=== PATIENT | male | born 1990 | race Asian ===

== ENCOUNTER 2021-02-17 21:19 | Emergency (ER) | payer OTHER ==
[~2021-02-17] VITALS: Ht 180.3 cm; Wt 72.6 kg
[2021-02-17 21:23] VITALS: TEMP 99.8
[2021-02-17 22:15] VITALS: BP 123/60
== END 2021-02-17 22:17 | disposition home or self-care (01) ==
LOC: ED 21:19
DX: J06.9 Acute upper respiratory infection, unspecified (principal); U07.1 COVID-19; F17.210 Nicotine dependence, cigarettes, uncomplicated
CPT/HCPCS: 87635; 99283; U0003

== ENCOUNTER 2022-03-30 16:15 | Emergency (ER) | payer OTHER ==
[~2022-03-30] VITALS: Ht 180.3 cm; Wt 77.1 kg
[2022-03-30 17:30] LABS: PLATELET COUNT 266 K/uL (142-355)
[2022-03-30 17:37] LABS: POTASSIUM 3.5 mmol/L (3.6-5.2)
[2022-03-30 18:05] VITALS: BP 139/66; TEMP 98.1
== END 2022-03-30 18:09 | disposition home or self-care (01) ==
LOC: ED 16:15
PROVIDERS: Family Medicine
DX: J01.80 Other acute sinusitis (principal); R05.8 Other specified cough; R11.10 Vomiting, unspecified; F12.10 Cannabis abuse, uncomplicated; F17.210 Nicotine dependence, cigarettes, uncomplicated
CPT/HCPCS: 36415; 80053; 80307; 81002; 82150; 83690; 85027; 99283